=== PATIENT | female | born 1970 | race Caucasian/White ===

== ENCOUNTER 2018-03-16 18:28 | Emergency (ER) | payer MEDICAID ==
[~2018-03-16] VITALS: Ht 162.6 cm; Wt 70.9 kg
[~2018-03-16 18:28] MED LIST: CYCL-1 PO
[2018-03-16 18:43] VITALS: BP 126/78
[2018-03-16] MEDS ORDERED: IBUP-1985 PO (20:34)
[2018-03-16] MEDS ORDERED: ONDA4TAB12 PO (20:34)
[2018-03-16] MEDS ORDERED: ondansetron 4mg rapidly disintigrating tab PO ONE (20:35)
[2018-03-16] MEDS ORDERED: SUMAtriptan succ. 6 MG/0.5ml vial SQ ONE (20:35)
[2018-03-16] MEDS ORDERED: ketorolac tromethamine 15mg/ml inj. IM ONE (20:35)
[2018-03-16] MEDS ORDERED: acetaminophen 325mg tablet PO ONE (20:35)
== END 2018-03-16 21:02 | disposition home or self-care (01) ==
LOC: ER 18:29
DX: R51 Headache (principal); R11.0 Nausea; E86.0 Dehydration; G43.909 Migraine, unspecified, not intractable, without status migrainosus; Z60.2 Problems related to living alone
CPT/HCPCS: 96372; 99284; J1885; J3030

== ENCOUNTER 2018-05-16 10:26 | Emergency (ER) | payer OTHER, MEDICAID ==
[~2018-05-16] VITALS: Ht 565.3 cm; Wt 68.2 kg
[~2018-05-16 10:26] MED LIST changes: +IBUP-1985 PO; +ONDA4TAB12 PO
[2018-05-16 10:49] VITALS: BP 136/82
[2018-05-16] MEDS ORDERED: IBUP-1985 PO (11:39)
[2018-05-16] MEDS ORDERED: METH-360 PO (11:39)
[2018-05-16] MEDS ORDERED: ketorolac tromethamine 15mg/ml inj. IM ONE (11:40)
[2018-05-16] MEDS ORDERED: diazepam 5mg tablet PO ONE (11:40)
== END 2018-05-16 12:06 | disposition home or self-care (01) ==
LOC: ER 10:27
DX: S16.1XXA Strain of muscle, fascia and tendon at neck level, initial encounter (principal); G43.909 Migraine, unspecified, not intractable, without status migrainosus; G89.29 Other chronic pain; Z79.899 Other long term (current) drug therapy; V89.2XXA Person injured in unspecified motor-vehicle accident, traffic, initial encounter; Y93.89 Activity, other specified; Y92.89 Other specified places as the place of occurrence of the external cause; Y99.8 Other external cause status
CPT/HCPCS: 96372; 99283; J1885

== ENCOUNTER 2019-08-05 09:44 | Emergency (ER) | payer MEDICAID, OTHER ==
[~2019-08-05] VITALS: Ht 162.6 cm; Wt 70.0 kg
[~2019-08-05 09:44] MED LIST changes: +METH-360 PO; +PROC-8 PO
[2019-08-05] MEDS ORDERED: ketorolac trometh. 30mg/ml inj. IV ONE (10:10)
[2019-08-05] MEDS ORDERED: ondansetron/PF 4mg/2ml inj IV ONE (10:10)
[2019-08-05] MEDS ORDERED: normal saline 1000ml 1,000 ML IV ONE (10:10)
[2019-08-05] MEDS ORDERED: LOPE2CAP PO (11:06)
[2019-08-05] MEDS ORDERED: ONDA8TAB6 PO (11:06)
[2019-08-05 11:15] VITALS: BP 120/66
== END 2019-08-05 11:23 | disposition home or self-care (01) ==
LOC: ER 09:44
DX: B34.9 Viral infection, unspecified (principal); G43.909 Migraine, unspecified, not intractable, without status migrainosus; G89.29 Other chronic pain; F12.90 Cannabis use, unspecified, uncomplicated
CPT/HCPCS: 96361; 96374; 96375; 99283; J1885; J2405; J7030

== ENCOUNTER 2019-11-24 12:15 | Emergency (ER) | payer MEDICAID, OTHER ==
[~2019-11-24] VITALS: Ht 160 cm; Wt 79.0 kg
[~2019-11-24 12:15] MED LIST changes: +LOPE2CAP PO; +ONDA8TAB6 PO
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
[2019-11-24] MEDS ORDERED: CefTRIAXone 1000mg IM Kit (w/lidocaine diluent) IM ONE (13:40)
[2019-11-24] MEDS ORDERED: azithromycin 250mg tablet PO ONE (13:40)
--- NOTE | 2019-11-24 13:55 | NUR ---
Provider at bedside for exam.
--- NOTE | 2019-11-24 14:13 | NUR ---
Officers at bedside to speak with patient.
[2019-11-24 14:25] LABS: URINE HCG NEGATIVE (NEG)
[2019-11-24 14:27] LABS: CLARITY,URINE CLOUDY (Clear); COLOR,URINE YELLOW (Yellow); GLUCOSE, URINE NEGATIVE (Neg); KETONES,URINE NEGATIVE (Neg); LEUKOCYTE ESTERASE ,URINE SMALL (Neg); NITRITES, URINE NEGATIVE (Neg); OCCULT BLOOD,URINE MODERATE (Neg); PH,URINE 5.5 (4.8-8.0); PROTEIN,URINE NEGATIVE (Neg); UROBILINOGEN,URINE 0.2 E.U/dL (0.2-1.0)
[2019-11-24 14:37] LABS: UA COLLECTION TYPE VOIDED
[2019-11-24 14:38] LABS: TRICHOMONAS,URINE MANY /HPF (NEGATIVE)
[2019-11-24 14:48] LABS: BACTERIA,URINE 1+ /HPF (Neg); MUCUS STRANDS MANY /LPF (Neg); SQUAMOUS EPITHELIAL CELL,UR MANY /LPF (FEW); WBC,URINE 50-100 /HPF (0-4)
[2019-11-24] MEDS ORDERED: metroNIDAZOLE 500mg tablet PO ONE (15:00)
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
[2019-11-24] MEDS ORDERED: LORazepam 0.5 MG tablet PO PRN (15:45)
[2019-11-24 16:19] VITALS: BP 131/77
== END 2019-11-24 16:22 | disposition home or self-care (01) ==
LOC: EEVIPCON 12:15 → ER 12:15
DX: T74.21XA Adult sexual abuse, confirmed, initial encounter (principal); S30.811A Abrasion of abdominal wall, initial encounter; G43.909 Migraine, unspecified, not intractable, without status migrainosus; G89.29 Other chronic pain; F12.90 Cannabis use, unspecified, uncomplicated; Y04.0XXA Assault by unarmed brawl or fight, initial encounter; Y93.89 Activity, other specified; Y92.481 Parking lot as the place of occurrence of the external cause; Y99.9 Unspecified external cause status; Y07.9 Unspecified perpetrator of maltreatment and neglect
CPT/HCPCS: 36415; 81001; 81025; 87210; 87491; 87591; 96372; 99284; J0696; Q0112; J3490

== ENCOUNTER → 2020-11-16 | Emergency (ER) | payer OTHER ==
[~2020-11-16] VITALS: Ht 162.6 cm; Wt 77.3 kg
[~2020-11-16] MED LIST changes: +AMOX-117 PO; +PRED20TA PO
[2020-11-16 19:08] VITALS: BP 122/91
== END | disposition home or self-care (01) ==
LOC: ER 18:42
DX: J01.90 Acute sinusitis, unspecified (principal); R09.81 Nasal congestion; G43.909 Migraine, unspecified, not intractable, without status migrainosus; G89.29 Other chronic pain; F41.9 Anxiety disorder, unspecified; F12.90 Cannabis use, unspecified, uncomplicated; Z60.2 Problems related to living alone; Z79.2 Long term (current) use of antibiotics; Z79.899 Other long term (current) drug therapy
CPT/HCPCS: 99283

== ENCOUNTER 2021-04-25 07:41 | Emergency (ER) | payer MEDICAID ==
[~2021-04-25] VITALS: Ht 162.6 cm; Wt 77.3 kg
[~2021-04-25 07:41] MED LIST changes: -AMOX-117 PO; -PRED20TA PO
[2021-04-25] MEDS ORDERED: dexamethasone sod phosphate 10mg/ml inj IV STA (08:51)
[2021-04-25] MEDS ORDERED: ketorolac trometh. 30mg/ml inj. IV ONE (08:55)
[2021-04-25] MEDS ORDERED: normal saline 1000ML IV soln IVB ONE (08:55)
[2021-04-25] MEDS ORDERED: metoclopramide 5 mg/ml inj IV ONE (08:55)
[2021-04-25] MEDS ORDERED: LORazepam 2 mg/ml vial IV ONE (08:55)
[2021-04-25] MEDS ORDERED: PENI250T2 PO (09:09)
[2021-04-25 11:40] VITALS: BP 125/83
== END 2021-04-25 11:42 | disposition home or self-care (01) ==
LOC: ER 07:41
DX: G43.909 Migraine, unspecified, not intractable, without status migrainosus (principal); K04.7 Periapical abscess without sinus; R11.0 Nausea; G89.29 Other chronic pain; F41.9 Anxiety disorder, unspecified; F12.90 Cannabis use, unspecified, uncomplicated; Z60.2 Problems related to living alone; Z79.2 Long term (current) use of antibiotics; Z79.899 Other long term (current) drug therapy
CPT/HCPCS: 96361; 96374; 96375; 99284; J1100; J1885; J2060; J2765; J7030